=== PATIENT | female | born 1975 | race Caucasian/White ===

== ENCOUNTER 2019-03-17 11:35 | Inpatient (IN) | payer OTHER ==
[~2019-03-17] VITALS: Ht 154.9 cm; Wt 91.2 kg
[~2019-03-17 11:35] MED LIST: ADDERALL 10 MG10 MG PO
[2019-03-17 11:49] VITALS: BP 130/83
[2019-03-17] MEDS ORDERED: CLINDAGEL75 ML PO (11:54)
[2019-03-17] MEDS ORDERED: TOPROL XL50 MG PO (11:55)
[2019-03-17] MEDS ORDERED: SPIRONOLACTONE50 MG PO (11:55)
[2019-03-17 12:22] LABS: ABSOLUTE BASOPHILS 0.1 thou/uL (0.0-0.2); ABSOLUTE LYMPHOCYTES 1.2 thou/uL (0.8-5.3); ABSOLUTE MONOCYTES 0.6 thou/uL (0.0-1.2); ABSOLUTE NEUTROPHILS 5.6 thou/uL (1.6-8.1); BASOPHILS 0.9 %; EOSINOPHILS 0.1 %; HEMATOCRIT 37.4 % (37.0-47.0); HEMOGLOBIN 13.3 gm/dL (12.0-15.0); LYMPHOCYTES 16.5 %; MCH 34.5 pg (26.0-34.0); MCHC 35.6 g/dL (28.0-37.0); MONOCYTES 7.6 %; MPV 7.3 fl. (7.2-11.1); NUCLEATED RBCS 0 /100WBC; PLATELET COUNT* 306 thou/uL (150-400); POLYS 74.9 %; RBC 3.86 mil/uL (4.20-5.00); RDW-CV 13.5 % (10.5-14.5); WBC 7.5 thou/uL (4.0-11.0)
[2019-03-17 12:31] LABS: CALCIUM 9.6 mg/dL (8.5-10.1); CREATININE 0.8 mg/dL (0.6-1.3); POTASSIUM 3.2 mmol/L (3.5-5.1)
[2019-03-17 12:35] LABS: ALBUMIN 3.6 g/dL (3.4-5.0); TOTAL BILIRUBIN 0.4 mg/dL (<0.1-1.0); TOTAL PROTEIN 7.6 g/dL (6.4-8.2)
[2019-03-17 15:29] VITALS: BP 135/68
[2019-03-17 15:45] VITALS: BP 136/79
--- NOTE | 2019-03-17 18:31 | NUR ---
PATIENT AWAKE IN BED. NO SIGNS OF DISTRESS OBSERVED. ALL SAFETY MEASURES MAINTAINED. PATIENT DENIES FURTHER NEEDS AT THIS TIME.
[2019-03-18] VITALS: BP 123/45
[2019-03-18] LABS: CALCIUM 8.5 mg/dL (8.5-10.1); CREATININE 0.9 mg/dL (0.6-1.3); POTASSIUM 3.2 mmol/L (3.5-5.1)
--- NOTE | 2019-03-18 04:56 | NUR ---
PATIENT SLEPT WELL DURING THIS SHIFT. PT UP AD [place] TO BATHROOM. PT WITH FLUIDS/ANTIBIOTICS INFUSING PER DR ORDER. WARM MOIST PACK TO ABDOMEN PER DR ORDER. PT DENIES PAIN/NAUSEA. VITALS WNL. FREQUENTLY USED ITEMS AND CALL LIGHT WITHIN REACH. SIDERAILS UPX2. WILL CONTINUE TO MONITOR.
[2019-03-18 07:40] VITALS: BP 122/69
--- NOTE | 2019-03-18 11:55 | NUR ---
SW met with pt to complete initial assessment, introduce self, and SW role. Pt alert, oriented, pleasant. Pt lives at home with her dtr and is independent with mobility and ADLs. 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 Pt does not anticipate any dc needs at this time.
--- NOTE | 2019-03-18 12:51 | NUR ---
WOUND CARE NOTE: CONSULT RECEIVED FOR CELLULITIS PATIENT PRESENTS WITH A LESION TO THE LEFT LOWER QUADRANT OF HER ABDOMEN. WOUND MEASURES 0.5X0.7X0.2. MOIST, YELLOW, ADHERENT SLOUGH TISSUE TO ENTIRETY OF THE WOUND BED. WOUND DOES NOT PROBE. WOUND DRAINING SMALL AMOUNT OF SEROSANGUINEOUS DRAINAGE. WOUND WITH INDURATION, BELIEVE JUST EDEMA FROM THE INFECTION. NO FLUCTUANCE NOTED. EDEMA/INFLAMMATION TO ZANE-WOUND, REDNESS APPEARS TO BE RECEEDING FROM THE MARKED LINES. WOUND WAS CLEANSED WITH WOUND CLEANSER, PATTED DRY. APPLIED WARM, MOIST WASHCLOTH AND APPLIED HEATING PAD OVER. MAY APPLY BANDAID/GAUZE OVER SITE IF NEEDED. RECOMMEND CONTINUE WITH WARM, MOIST HEAT MAY FOLLOW UP IN WOUND CENTER IF DESIRED MAY USE CLEAN, DRY DRESSING (BANDAID/BORDERED GAUZE) IF SO DESIRED.
[2019-03-18] MEDS ORDERED: WELLBUTRIN SR150 MG PO (14:39)
[2019-03-18] MEDS ORDERED: RISPERDAL0.5 MG PO (14:40)
[2019-03-18 16:07] VITALS: BP 164/68
--- NOTE | 2019-03-18 16:58 | NUR ---
PT A&OX4 VSS. NO C/O PAIN AT THIS TIME. PT VISITED BY WHIZZER OPERATOR. MOIST HEAT APPLIED TO ABD ORDERED. IV VANC RUNNING ORDERED. NARES SWABBED FOR MRSA, RESULTS PENDING. PT RESTS IN BED WITH CALL LIGHT IN REACH.
[2019-03-18 21:00] VITALS: BP 120/67
--- NOTE | 2019-03-19 05:38 | NUR ---
PATIENT SLEPT WELL DURING THIS SHIFT. PT UP AD [place] TO BATHROOM. PT WITH ANTIBIOTICS INFUSING PER DR ORDER. PT SAID ABDOMINAL WOUND FEELING BETTER. MOIST WARM PACKS APPLIED. WILL CONTINUE TO MONITOR.
[2019-03-19 07:45] VITALS: BP 118/54
[2019-03-19] MEDS ORDERED: BACTRIM DS TAB1 EACH PO (09:00)
[2019-03-19] MEDS ORDERED: CULTURELLE KID1 EAC1 PO (09:00)
[2019-03-19 10:59] VITALS: BP 118/54
--- NOTE | 2019-03-19 11:35 | NUR ---
PT A&OX4 VSS. NO C/O PAIN AT THIS TIME. IV DC'D, NO REDNESS SWELLING AT SITE. ANTIBIOTIC RX CALLED IN TO PT PHARMACY OF CHOICE, [facility] [address] PT STATES UNDERSTANDING OF DC INSTRUCTIONS AND RX INFORMATION PROVIDED. PT DECLINES WC TO ER ENTRANCE. PT AMB TO EXIT, GAIT STEADY. ALL OF PT PERSAONL BELONGINGS W/ PT AT TIME SHE LEAVES THE UNIT. WOUND PHOTO OBTAINED AND FILED TO CHART PRIOR TO DC FROM THIS UNIT.
== END 2019-03-19 11:42 | disposition home or self-care (01) | DRG 603 ==
LOC: M.ERS 11:35 → M.TBA-ER 13:34 → M.3W 13:34
PROVIDERS: Nurse Practitioner Family; ADMIT Internal Medicine
DX: L03.311 Cellulitis of abdominal wall (principal); M79.3 Panniculitis, unspecified; L02.211 Cutaneous abscess of abdominal wall; G47.419 Narcolepsy without cataplexy; I10 Essential (primary) hypertension; F32.9 Major depressive disorder, single episode, unspecified; S30.861A Insect bite (nonvenomous) of abdominal wall, initial encounter; W57.XXXA Bitten or stung by nonvenomous insect and other nonvenomous arthropods, initial encounter; E87.6 Hypokalemia; E66.9 Obesity, unspecified; B95.62 Methicillin resistant Staphylococcus aureus infection as the cause of diseases classified elsewhere; Z90.49 Acquired absence of other specified parts of digestive tract; Z90.711 Acquired absence of uterus with remaining cervical stump; Z88.8 Allergy status to other drugs, medicaments and biological substances; Y93.89 Activity, other specified; Y92.89 Other specified places as the place of occurrence of the external cause; Y99.8 Other external cause status; Z68.38 Body mass index [BMI] 38.0-38.9, adult